=== PATIENT | female | born 1985 | race Caucasian/White ===

== ENCOUNTER 2021-08-02 13:09 | Outpatient (REF) | payer OTHER, SELFPAY ==
[2021-08-02 14:21] LABS: MANUAL DIFF FLAG NO
[2021-08-02 14:44] LABS: Basophils Percent Auto 0.3 % (0-2); Eosinophils Percent Auto 0.6 % (0-4); Hematocrit 38.4 % (37.0-47.0); Imm Gran Abs Auto 0.04 X10*3/uL (0.00-0.03); Imm Gran Pct Auto 0.6 % (0.0-0.4); Lymphocytes Absolute Auto 2.4 X10*3/uL (1.2-4.9); Lymphocytes Percent Auto 37.2 % (20-40); Mean Corpuscular HGB Conc 33.9 g/dl (31.0-35.0); Mean Corpuscular Hemoglobin 30.3 pg (27.0-33.0); Mean Corpuscular Volume 89.5 fL (80.0-98.0); Monocytes Absolute Auto 0.4 X10*3/uL (0.1-1.2); Monocytes Percent Auto 6.2 % (2-11); Neutrophils Absolute Auto 3.6 x10*3/uL (2.0-8.3); Neutrophils Percent Auto 55.1 % (45-73); Platelet Count 297 X10*3/uL (160-400); Red Blood Count 4.29 X10*6/uL (4.20-5.50); White Blood Count 6.5 X10*3/uL (4.8-10.8)
== END 2021-08-02 13:10 | disposition home or self-care (01) ==
LOC: HO.LAB 13:09
PROVIDERS: PCP Internal Medicine; Visit Provider Internal Medicine Pulmonary Disease
DX: J45.909 Unspecified asthma, uncomplicated (principal); Z91.09 Other allergy status, other than to drugs and biological substances
CPT/HCPCS: 36415; 82785; 85025; 86003

== ENCOUNTER 2021-08-23 15:03 | Outpatient (REF) | payer OTHER, SELFPAY ==
--- NOTE | 2021-08-23 17:27 | PFT_ITS ---
INDICATION: Cough. SPIROMETRY: FEV1 to FVC of 80% with an FEV1 of 3.98 L, which is 118% predicted; FVC of 4.98 L, which is 121% predicted. No significant response to bronchodilators noted. Maximum voluntary ventilation 123% predicted. LUNG VOLUMES: Total lung capacity 119% predicted. Residual volume 90% predicted. Expiratory reserve volume 104% predicted. DIFFUSION CAPACITY: DLCO 99% predicted. COMPARISONS: None. INTERPRETATION: No obstructive nor restrictive ventilatory defects identified. No significant response to bronchodilators noted. Normal maximum voluntary ventilation. The patient does have a trend of hyperinflation and a normal diffusion capacity. If asthma is in the differential, methacholine challenge may be helpful for assessing for hyper-reactive airways, otherwise clinical correlation warranted. Johan Leija MD MR/MODL / [id number]
== END 2021-08-23 15:04 | disposition home or self-care (01) ==
LOC: HO.RESP 15:03
PROVIDERS: PCP Internal Medicine; Visit Provider Internal Medicine Pulmonary Disease
DX: R50.9 Fever, unspecified (principal); J45.909 Unspecified asthma, uncomplicated
CPT/HCPCS: 94060; 94727; 94729

== ENCOUNTER → 2021-08-26 10:03 | Outpatient (BNVA) | payer OTHER, SELFPAY | PROVIDERS: PCP Internal Medicine; Visit Provider Internal Medicine Pulmonary Disease | DX: J45.909 Unspecified asthma, uncomplicated (principal); Z91.09 Other allergy status, other than to drugs and biological substances ==